=== PATIENT | male | born 1970 | race Hispanic/Latino ===

== ENCOUNTER 2017-10-15 07:55 | Day surgery (SDC) | payer OTHER ==
[~2017-10-15] VITALS: Ht 172.7 cm; Wt 83.0 kg
[2017-10-15 08:24] VITALS: BP 103/62
[2017-10-15 08:46] LABS: BASOPHILS % (AUTO) 1.6 % (0.0-5.0); EOSINOPHILS % (AUTO) 2.5 % (0.0-8.0); HEMATOCRIT 23.5 % (42-54); LYMPHOCYTES % (AUTO) 12.1 % (21.0-51.0); MEAN CORPUSCULAR HEMOGLOBIN 29.5 pg (27.0-33.0); MEAN CORPUSCULAR HGB CONC 33.6 g/dL (32.0-36.0); MEAN CORPUSCULAR VOLUME 87.7 fL (79-99); MONOCYTES % (AUTO) 5.5 % (3.0-13.0); NEUTROPHILS % (AUTO) 78.3 % (40.0-77.0); NUCLEATED RED BLOOD CELLS 0.1 % (0.0-0.19); PLATELET COUNT (AUTO) 352 K/uL (130-400); RED BLOOD CELL COUNT(AUTO) 2.69 MIL/uL (4.50-6.20); RED CELL DISTRIBUTION WIDTH 15.1 % (11.0-15.5); WHITE BLOOD COUNT (AUTO) 5.3 K/uL (4.8-10.8)
[2017-10-15 08:50] LABS: CREATININE 0.9 mg/dL (0.5-1.5); POTASSIUM 4.3 mmol/L (3.5-5.1)
[2017-10-15 08:57] LABS: ALBUMIN 2.6 g/dL (3.5-5.0); BILIRUBIN,DIRECT 0.7 mg/dL (0.0-0.3); BILIRUBIN,TOTAL 0.9 mg/dL (0.2-1.0); TOTAL PROTEIN, SERUM 7.5 g/dL (6.0-8.3)
[2017-10-15] MEDS ORDERED: INVOK100TB PO (09:00)
[2017-10-15] MEDS ORDERED: LUBI24CA2 PO (09:00)
[2017-10-15] MEDS ORDERED: METF500T6 PO (09:00)
[2017-10-15] MEDS ORDERED: PROPOFOL 1000 MG/100 ML 100 ML IV ONE (11:59)
[2017-11-27] MEDS ORDERED: FISH1CAP27 PO (14:12)
[2017-11-27] MEDS ORDERED: PANT40TA PO (14:12)
== END 2017-10-15 13:04 | disposition home or self-care (01) ==
LOC: ENDO 07:55 → DAH 07:55 → ENDO 13:04
PROVIDERS: ATTEND Internal Medicine
DX: K85.90 Acute pancreatitis without necrosis or infection, unspecified (principal); K29.80 Duodenitis without bleeding; K31.89 Other diseases of stomach and duodenum; E78.5 Hyperlipidemia, unspecified; E11.9 Type 2 diabetes mellitus without complications; Z79.84 Long term (current) use of oral hypoglycemic drugs; Z79.899 Other long term (current) drug therapy; R77.9 Abnormality of plasma protein, unspecified
CPT/HCPCS: 36415; 43231; 80053; 82248; 82378; 82948 ×2; 83690; 85025; 86316; J2704

== ENCOUNTER 2017-11-28 06:30 | Day surgery (SDC) | payer OTHER ==
[~2017-11-28] VITALS: Ht 172.7 cm; Wt 84.6 kg
[~2017-11-28 06:30] MED LIST: FISH1CAP27 PO; INVOK100TB PO; LUBI24CA2 PO; METF500T6 PO; PANT40TA PO
[2017-11-28] MEDS ORDERED: SODIUM CHLORIDE 0.9% 1000ML 1,000 ML IV ONE (06:39)
[2017-11-28 07:25] VITALS: BP 119/71
[2017-11-28] MEDS ORDERED: PROPOFOL 10 MG/ML 20ML VIAL IV ONE ×2 (09:52)
[2017-11-28 10:13] VITALS: BP 102/59
[2017-11-28 10:18] VITALS: BP 100/56
[2017-11-28 10:23] VITALS: BP 103/64
[2017-11-28 10:28] VITALS: BP 118/64
[2017-11-28 10:45] VITALS: BP 122/72
== END 2017-11-28 10:55 | disposition home or self-care (01) ==
LOC: ENDO 06:30 → DAH 06:30 → ENDO 10:55
PROVIDERS: ATTEND Internal Medicine Gastroenterology
DX: K29.50 Unspecified chronic gastritis without bleeding (principal); K31.9 Disease of stomach and duodenum, unspecified; E78.5 Hyperlipidemia, unspecified; E11.9 Type 2 diabetes mellitus without complications; Z79.899 Other long term (current) drug therapy; Z79.84 Long term (current) use of oral hypoglycemic drugs; K85.90 Acute pancreatitis without necrosis or infection, unspecified
CPT/HCPCS: 43237; 43239; 82948 ×2; A4606; J2704 ×2; J7030; 43231

== ENCOUNTER 2018-08-04 08:48 | Day surgery (SDC) | payer OTHER ==
[~2018-08-04] VITALS: Ht 175.3 cm; Wt 74.7 kg
[~2018-08-04 08:48] MED LIST changes: +METF-444 PO; -METF500T6 PO
[2018-08-04] MEDS ORDERED: IOHEXOL-350 50ML VIAL IV ONE (09:45)
[2018-08-04 09:48] VITALS: BP 151/78
[2018-08-04] MEDS ORDERED: ROCURONIUM 10MG/1ML SYR 10 MG/ML ML ONE (09:58)
[2018-08-04] MEDS ORDERED: GLYCOPYRROLATE 1 MG/5 ML SYRINGE ONE (09:58)
[2018-08-04] MEDS ORDERED: FENTANYL CITRATE PF 50 MCG/1 ML 2ML VIAL ONE (09:58)
[2018-08-04] MEDS ORDERED: PROPOFOL 10 MG/ML 20ML VIAL IV ONE (09:58)
[2018-08-04] MEDS ORDERED: NEOSTIGMINE 5MG/5ML SYR IV ONE (09:58)
[2018-08-04] MEDS ORDERED: SUCCINYLCHOLINE 200MG/10ML SYR ONE (09:59)
[2018-08-04] MEDS ORDERED: LORA10CA9 PO (10:04)
[2018-08-04] MEDS ORDERED: URSO300C4 PO (10:04)
[2018-08-04] MEDS ORDERED: PROPOFOL 1000 MG/100 ML 100 ML IV ONE (10:08)
[2018-08-04] MEDS ORDERED: SODIUM CHLORIDE 0.9% 1000ML 1,000 ML IV ONE (10:09)
[2018-08-04 10:25] VITALS: BP 146/92
[2018-08-04 10:30] VITALS: BP 132/85
[2018-08-04] MEDS ORDERED: INDOMETHACIN 50 MG SUPP.RECT RC SCH (10:30)
[2018-08-04 10:35] VITALS: BP 146/92
== END 2018-08-04 11:05 | disposition home or self-care (01) ==
LOC: ENDO 08:48 → DAH 08:48 → ENDO 11:05
PROVIDERS: ATTEND Internal Medicine Gastroenterology
DX: K83.1 Obstruction of bile duct (principal); Z98.84 Bariatric surgery status; Z68.30 Body mass index [BMI] 30.0-30.9, adult; E78.5 Hyperlipidemia, unspecified; E11.9 Type 2 diabetes mellitus without complications; K85.20 Alcohol induced acute pancreatitis without necrosis or infection; Z79.899 Other long term (current) drug therapy
CPT/HCPCS: 43260; 74330; 82948 ×2; A4606; J0330; J2704 ×2; J2710; J3010; J3490; J7030; Q9967

== ENCOUNTER 2019-03-25 07:46 | Day surgery (SDC) | payer OTHER ==
[~2019-03-25] VITALS: Ht 170.2 cm; Wt 72.1 kg
[2019-03-25] VITALS (15 sets, daily range): BP systolic 109–135; BP diastolic 64–84
[~2019-03-25 07:46] MED LIST changes: -FISH1CAP27 PO; -INVOK100TB PO; -LUBI24CA2 PO; -PANT40TA PO; +SODIUM CHLORIDE 0.9% 1000ML 1,000 ML IV ONE; +URSO300C4 PO
[2019-03-25] MEDS ORDERED: IOHEXOL-350 50ML VIAL IV ONE (10:34)
[2019-03-25] MEDS ORDERED: INDOMETHACIN 50 MG SUPP.RECT RC SCH (11:45)
[2019-03-25] MEDS ORDERED: MIDAZOLAM HCL 1 MG/ML 2ML VIAL ONE (12:11)
[2019-03-25] MEDS ORDERED: FENTANYL CITRATE PF 50 MCG/1 ML 2ML VIAL ONE (12:11)
== END 2019-03-25 14:45 | disposition home or self-care (01) ==
LOC: ENDO 07:46
PROVIDERS: ATTEND Internal Medicine
DX: K31.89 Other diseases of stomach and duodenum (principal); K83.1 Obstruction of bile duct; K85.01 Idiopathic acute pancreatitis with uninfected necrosis; E11.9 Type 2 diabetes mellitus without complications; Z79.84 Long term (current) use of oral hypoglycemic drugs; Z79.899 Other long term (current) drug therapy; E78.5 Hyperlipidemia, unspecified; Z87.39 Personal history of other diseases of the musculoskeletal system and connective tissue; Z98.84 Bariatric surgery status; F17.210 Nicotine dependence, cigarettes, uncomplicated
CPT/HCPCS: 43260; 82948 ×2; A4606; J2250; J3010; J7030; Q9967; 43235; 74330